=== PATIENT | female | born 1955 | race Caucasian/White ===

== ENCOUNTER → 2016-08-22 | Outpatient (CLI) | payer OTHER ==
--- NOTE | 2016-08-22 11:32 | US ---
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 There are no gallstones, gallbladder wall thickenin g or pericholecystic fluid. The liver, pancreas, and common duct are normal. There is no ascites. Th e visualized aorta and IVC are normal. Impression: No source for right upper quadrant pain identified. If there is concern for recurrence o r postoperative sequela in the operative bed, then consider CT abdomen with IV contrast.
== END ==
LOC: BRMIMAGING 10:05
PROVIDERS: ATTEND Family Medicine
DX: R10.11 Right upper quadrant pain (principal); Z90.5 Acquired absence of kidney
CPT/HCPCS: 76705-PO

== ENCOUNTER → 2017-08-09 | Outpatient (CLI) | payer OTHER | LOC: BRMIMAGING 13:37 | PROVIDERS: ATTEND Family Medicine | DX: Z13.820 Encounter for screening for osteoporosis (principal); M85.89 Other specified disorders of bone density and structure, multiple sites ==

== ENCOUNTER → 2017-09-25 | Outpatient (CLI) | payer OTHER | LOC: BRMIMAGING 13:02 | PROVIDERS: ATTEND Family Medicine | DX: Z12.31 Encounter for screening mammogram for malignant neoplasm of breast (principal) ==

== ENCOUNTER → 2018-07-12 | Outpatient (CLI) | payer OTHER | LOC: FIMAGING 07:27 | PROVIDERS: ATTEND Family Medicine | DX: R10.9 Unspecified abdominal pain (principal); I65.23 Occlusion and stenosis of bilateral carotid arteries; R51 Headache ==

== ENCOUNTER → 2018-07-18 | Outpatient (CLI) | payer OTHER | LOC: BRMIMAGING 10:16 | PROVIDERS: ATTEND Family Medicine | DX: M54.6 Pain in thoracic spine (principal); M51.36 Other intervertebral disc degeneration, lumbar region | CPT/HCPCS: 72070-PO ==

== ENCOUNTER → 2018-09-26 | Outpatient (CLI) | payer OTHER | LOC: FIMAGING 12:49 | PROVIDERS: ATTEND Family Medicine | DX: Z12.31 Encounter for screening mammogram for malignant neoplasm of breast (principal) ==